=== PATIENT | female | born 1995 | race Caucasian/White ===

== ENCOUNTER 2017-11-03 08:01 | Day surgery (SDC) | payer BC, MEDICAID ==
[~2017-11-03] VITALS: Ht 154.9 cm; Wt 87.0 kg
[~2017-11-03 08:01] MED LIST: HEPARIN 1,000 UNITS/ML, 10ML ONE
[2017-11-03 08:47] VITALS: BP 106/75
[2017-11-03] MEDS ORDERED: SODIUM CHLORIDE 0.9% 1,000 ML IV SCH (08:49)
[2017-11-03] MEDS ORDERED: PLEASE ENTER HEIGHT AND WEIGHT MC SCH (09:00)
[2017-11-03] MEDS ORDERED: PLEASE ENTER ALLERGIES MC SCH (09:00)
[2017-11-03] MEDS ORDERED: SODI650T PO (09:12)
[2017-11-03] MEDS ORDERED: CHOL100015 PO (09:12)
[2017-11-03] MEDS ORDERED: LISI-170 PO (09:12)
[2017-11-03] MEDS ORDERED: AMLO10TA2 PO (09:12)
[2017-11-03] MEDS ORDERED: BIRTH CONTROL (09:12)
[2017-11-03 09:45] LABS: HCG UR SG 1.015 (1.003-1.030)
[2017-11-03] MEDS ORDERED: FENTANYL PF 100 MCG/2ML ONE ×2 (10:41→11:57)
[2017-11-03] MEDS ORDERED: MIDAZOLAM 1 MG/ML, 2ML ONE (10:41)
[2017-11-03] MEDS ORDERED: ONDANSETRON 2MG/ML, 2ML IVPush PRN (11:00)
[2017-11-03] MEDS ORDERED: MIDAZOLAM 1 MG/ML, 2ML IV PRN (11:00)
[2017-11-03] MEDS ORDERED: HYDROmorphone 1 MG/ML, 1ML IV PRN (11:00)
[2017-11-03] MEDS ORDERED: OXYcodone 5 MG/5 ML ORAL.SOL UDC PO PRN (11:00)
[2017-11-03] MEDS ORDERED: LABETALOL 5MG/ML, 20ML IV PRN (11:00)
[2017-11-03] MEDS ORDERED: MEPERIDINE/PF 25MG/0.5ML IVPush PRN (11:00)
[2017-11-03] MEDS ORDERED: ONDANSETRON 2MG/ML, 2ML ONE (11:16)
[2017-11-03] MEDS ORDERED: PHENYLEPHRINE 10 MG/ML ONE (11:16)
[2017-11-03] MEDS ORDERED: CEFAZOLIN 1,000 MG ONE (11:16)
[2017-11-03] MEDS ORDERED: METOCLOPRAMIDE 5 MG/ML, 2ML ONE (11:16)
[2017-11-03] MEDS ORDERED: DEXAMETHASONE 4 MG/ML, 1ML ONE (11:16)
[2017-11-03] MEDS ORDERED: PROPOFOL 10 MG/ML, 20ML ONE (11:16)
[2017-11-03] MEDS ORDERED: BUPIVACAINE/PF-EPI 0.5% 1:200K INFIL ONE ×2 (11:30→11:43)
[2017-11-03] MEDS: FENTANYL PF 100 MCG/2ML IV PRN ×3 (11:55→12:21)
[2017-11-03] MEDS ORDERED: BUPIVACAINE/PF-EPI 0.5% 1:200K ONE (11:55)
[2017-11-03] MEDS ORDERED: OXYcodone 5 MG/5 ML ORAL.SOL UDC ONE (12:06)
[2017-11-03] MEDS ORDERED: MEPERIDINE/PF 50 MG/ML ONE (12:16)
[2017-11-03] MEDS ORDERED: DIPHENHYDRAMINE 50 MG/ML, 1ML ONE (12:24)
[2017-11-03] MEDS ORDERED: DIPHENHYDRAMINE 50 MG/ML, 1ML IVPush ONE (12:30)
== END 2017-11-03 14:25 | disposition home or self-care (01) ==
LOC: OUT 08:01
PROVIDERS: ATTEND Surgery Vascular Surgery
DX: N18.6 End stage renal disease (principal); Z79.899 Other long term (current) drug therapy
CPT/HCPCS: 36415; 36821; 80047; 81025; J0690; J1100; J1200; J1644; J2175; J2250; J2370; J2405; J2704; J2765; J3010; J7030; C1750